=== PATIENT | male | born 1980 | race Two or more races ===

== ENCOUNTER 2018-09-17 16:46 | Emergency (ER) | payer MEDICAID ==
[~2018-09-17] VITALS: Ht 172.7 cm; Wt 111.6 kg
[2018-09-17 18:00] LABS: Basophils # (auto) 0 uL; Basophils % (auto) 0.7 % (0.0-2.0); Eosinophils # (auto) 0.1 uL; Eosinophils % (auto) 1.1 % (0.0-7.0); Hematocrit 45.9 % (41.0-53.0); Hemoglobin 15.6 g/dL (13.5-17.5); Lymphocytes # (auto) 1.9 uL; Lymphocytes % (auto) 26.8 % (10.0-50.0); Mean Corpuscular Hgb Conc. 34.1 g/dL (32.0-36.0); Mean Corpuscular Volume 91.1 fL (80.0-100.0); Monocytes # (auto) 0.6 uL; Monocytes % (auto) 8.3 % (0.0-12.0); Neutrophils # (auto) 4.5 uL; Neutrophils % (auto) 63.1 % (37.0-80.0); Platelet Count (auto) 234 10^3/uL (140-450); Red Blood Cells 5.04 10^6/uL (4.5-5.90); Red Cell Distribution Width 13.3 % (11.8-14.3); White Blood Cell 7.1 10^3/uL (4.4-10.8)
[2018-09-17 18:14] LABS: Alanine Aminotransferase 19 U/L (16-61); Albumin 4.5 g/dL (3.4-5.0); Anion Gap 6 (5-15); Aspartate Aminotransferase 12 U/L (15-37); BUN/Creatinine Ratio 15.1; Blood Urea Nitrogen 14 mg/dL (7-18); Calcium 9.5 mg/dL (8.5-10.1); Carbon Dioxide 25 mmol/L (21-32); Chloride 109 mmol/L (98-107); GFR African American 116 mL/min; GFR Non-African American 96 mL/min; Glucose 89 mg/dL (74-106); Magnesium 2.4 mg/dL (1.6-2.6); Sodium 140 mmol/L (136-145)
[2018-09-17 18:17] LABS: Alkaline Phosphatase 62 U/L (45-117); Bilirubin, Total 0.8 mg/dL (0.2-1.0); Total Protein 8.2 g/dL (6.4-8.2)
[2018-09-17 19:13] LABS: Urine WBC None Seen /hpf (0 - 3)
[2018-09-17 19:25] LABS: Urine Bacteria NONE SEEN /hpf (None Seen); Urine Blood Negative /uL (Negative); Urine Specific Gravity 1.007 (1.001-1.035)
[2018-09-17 19:32] LABS: INR 1.01 (0.9-1.15); Partial Thromboplastin Time 26.9 sec (23.64-32.05)
[2018-09-17 22:35] VITALS: BP 149/96
== END 2018-09-17 22:36 | disposition home or self-care (01) ==
LOC: ER 16:53
DX: F41.9 Anxiety disorder, unspecified (principal)
CPT/HCPCS: 36415; 70450; 71046; 80053; 81001; 83735; 83880; 84443; 84484; 85025; 85610; 85730; 93005